=== PATIENT | female | born 1945 | race Caucasian/White ===

== ENCOUNTER 2016-12-07 02:19 | Observation (INO) | payer MEDICARE ==
[2016-12-07] VITALS (11 sets, daily range): BP systolic 100–232; BP diastolic 56–102; PULSE 65–93; RESP 16–22; TEMP 96.2–98; O2SAT 96–99
[~2016-12-07] VITALS: Ht 157.5 cm; Wt 71.0 kg
[~2016-12-07 02:19] MED LIST: BACT800T5 PO; CLIN1CAP5 PO; LISI-363 PO; LOVA20TA PO
[2016-12-07] MEDS ORDERED: LISI-515 PO (02:38)
[2016-12-07] MEDS ORDERED: LOVA10TA PO (02:39)
--- NOTE | 2016-12-07 03:24 | PD ---
HPI Chief Complaint: Back/ Neck Pain or Injury Time Seen by Provider: 03:16 Travel History International Travel<30 days: No Contact w/Intl Traveler<30days: No Traveled to known affect area: No History of Present Illness HPI The patient is a 71-year-old female that was at girls night out and she had one drink of vodka and fell twice this evening, both losing her balance and tripping. She fell once at 5 PM and then another time at 6 PM. She complains of pain on the lower thoracic spine and throughout the lumbar spine. She has tenderness in this area. She states her pain is a 10 over 10. The pain is sharp pain. There is no radiation of pain, numbness or weakness of any of her extremities. She specifically denies any cervical spine pain and she denies any head trauma. [facility] Past Medical History High Cholesterol: Yes Diminished Hearing: No Hypertension: Yes Tetanus Vaccination: < 5 Years Influenza Vaccination: No ?: Not Past Surgical History Section: Yes Social History Alcohol Use: Yes (Vodka weekly) Tobacco Use: No Substance Use: No Allergies-Medications (Allergen,Severity, Reaction): Coded Allergies: No Known Allergies (Verified , 12/07/16) Reported Meds & Prescriptions Reported Meds & Active Scripts Active Reported Lovastatin 10 Mg Tab 10 Mg PO DAILY Lisinopril 20 Mg Tab 20 Mg PO DAILY Review of Systems Except as stated in HPI: all other systems reviewed are Neg Physical Exam Narrative GENERAL: Well-nourished, well-developed patient in moderate to severe apparent distress with her thoracic and lumbar spine pain. Her vital signs show blood pressure 232/102 and respirations of 22 and heart rate of 93 but otherwise normal. SKIN: Focused skin assessment warm/dry. HEAD: Normocephalic. EYES: No scleral icterus. No injection or drainage. NECK: Supple, trachea midline. No JVD or lymphadenopathy. CARDIOVASCULAR: Regular rate and rhythm without murmurs, gallops, or rubs. RESPIRATORY: Breath sounds equal bilaterally. No accessory muscle use. GASTROINTESTINAL: Abdomen soft, non-tender, nondistended. MUSCULOSKELETAL: No cyanosis, or edema. BACK: Nontender without obvious deformity. No CVA tenderness. Data Data Last Documented VS Vital Signs Date Time Temp Pulse Resp B/P (MAP) Pulse Ox O2 Delivery O2 Flow Rate FiO2 12/07/16 05:45 70 18 163/85 (111) 99 Room Air 12/07/16 02:[address] Thor Spine W/O Contrast (12/07/16 03:16) Ct Lumb Spine W/O Contrast (12/07/16 03:16) Morphine Inj (Morphine Inj) (12/07/16 03:30) Ondansetron Inj (Zofran Inj) (12/07/16 03:30) Sodium Chlor 0.9% 1000 Ml Inj (Ns 1000 M (12/07/16 03:30) Ice/Cold Pack (12/07/16 03:27) Morphine Inj (Morphine Inj) (12/07/16 04:00) Morphine Inj (Morphine Inj) (12/07/16 05:00) Ondansetron Inj (Zofran Inj) (12/07/16 05:15) MDM Medical Decision Making Medical Screen Exam Complete: Yes Emergency Medical Condition: Yes Medical Record Reviewed: Yes Interpretation(s) The CT of the lumbar spine shows mild superior and plate fracture at L1 with no retropulsion of posterior fragments or canal stenosis. There are multilevel disc bulges. The CT of the thoracic spine shows no fracture or subluxation and incidentally notes mild emphysema. Differential Diagnosis Compression fracture, acute thoracic strain, acute lumbar strain, subluxation lumbar spine, burst fracture Narrative Course I first discussed the patient with Dr. Hope but she felt that the patient will need neurosurgical consultation and will need to go to [facility]. Because the patient is a patient of Dr. Shaw this will go to the [facility]. Dr. Chang is on tonight and I discussed the patient with him. He did except the patient. The patient had an episode of vertigo which caused her to vomit. She does have an intractable back pain with this mild superior endplate fracture. Diagnosis Primary Impression: Compression fracture of L1 lumbar vertebra Additional Impression: Vertigo Admitting Information Admitting Physician Requests: Admit Cyrus Lobo MD Dec 07, 2016 03:24
[2016-12-07] MEDS ORDERED: MORPHINE SULFATE 4 MG/ML INJ IV PUSH ONE ×3 (03:30→05:00)
[2016-12-07] MEDS ORDERED: SODIUM CHLOR 0.9% 1000 ML INJ 1,000 ML IV SCH (03:30)
[2016-12-07] MEDS ORDERED: ONDANSETRON HCL 4 MG/2 ML VIAL IV ONE ×2 (03:30→05:15)
--- NOTE | 2016-12-07 04:49 | RADRPT ---
EXAM DATE/TIME: 12/07/2016 03:46 [facility] COMPARISON: No previous studies available for comparison. INDICATIONS : Status post fall this evening. RADIATION DOSE: 41.94 CTDIvol (mGy) ; Combined studies - Thoracic Spine/Lumbar Spine MEDICAL HISTORY : Hypertension. SURGICAL HISTORY : section. ENCOUNTER: Initial ACUITY: 1 day PAIN SCALE: 10/10 LOCATION: middle back TECHNIQUE: Volumetric scanning of the thoracic spine was performed. Multiplanar reconstructions in the sagittal , coronal and oblique axial planes were performed. Using automated exposure control and adjustment o f the mA and/or kV according to patient size, radiation dose was kept as low as reasonably achievable to obtain optimal diagnostic quality images. DICOM format image data is available electronically f or review and comparison. FINDINGS: The vertebral bodies of the thoracic spine are in normal alignment without evidence of subluxation. Vertebral body height is maintained. No fractures are seen. T1-T2: Normal. T2-T3: The thecal sac has a normal diameter. No evidence of disc bulge or protrusion. T3-T4: The thecal sac has a normal diameter. No evidence of disc bulge or protrusion. T4-T5: The thecal sac has a normal diameter. No evidence of disc bulge or protrusion. T5-T6: The thecal sac has a normal diameter. No evidence of disc bulge or protrusion. T6-T7: The thecal sac has a normal diameter. No evidence of disc bulge or protrusion. T7-T8: The thecal sac has a normal diameter. No evidence of disc bulge or protrusion. T8-T9: The thecal sac has a normal diameter. No evidence of disc bulge or protrusion. T9-T10: The thecal sac has a normal diameter. No evidence of disc bulge or protrusion. T10-T11: The thecal sac has a normal diameter. No evidence of disc bulge or protrusion. T11-T12: The thecal sac has a normal diameter. No evidence of disc bulge or protrusion. T12-L1: The thecal sac has a normal diameter. No evidence of disc bulge or protrusion. CONCLUSION: 1. No fracture or subluxation. 2. Minimal degenerative changes. 3. Mild emphysema. Boni Queen MD on December 07, 2016 at 4:46 Board Certified Radiologist. This report was verified electronically.
--- NOTE | 2016-12-07 04:52 | RADRPT ---
EXAM DATE/TIME: 12/07/2016 03:46 [facility] COMPARISON: No previous studies available for comparison. INDICATIONS : Status post fall this evening RADIATION DOSE: 40.21 CTDIvol (mGy) ; Combined studies - Thoracic Spine/Lumbar Spine MEDICAL HISTORY : Hypertension. SURGICAL HISTORY : section. ENCOUNTER: Initial ACUITY: 1 day PAIN SCALE: 10/10 LOCATION: middle back TECHNIQUE: Volumetric scanning of the lumbar spine was performed. Multiplanar reconstructions in the sagittal, coronal and oblique axial planes were performed. Using automated exposure control and adjustment of the mA and/or kV according to patient size, radiation dose was kept as low as reasonably achievable t o obtain optimal diagnostic quality images. DICOM format image data is available electronically for review and comparison. FINDINGS: VERTEBRAE: Minimal fracture along the superior endplate at L1. No retropulsion of posterior fragments. ALIGNMENT: No evidence of subluxation. T12-L1: The thecal sac has a normal diameter. No evidence of disc bulge or protrusion. The neural foramina are patent bilaterally. L1-L2: The thecal sac has a normal diameter. No evidence of disc bulge or protrusion. The neural foramina are patent bilaterally. L2-L3: Mild broad-based disc bulge abuts ventral thecal sac without canal stenosis. The neural foramina are patent bilaterally. L3-L4: Mild broad-based disc bulge abuts ventral thecal sac without canal stenosis. The neural foramina ar e patent bilaterally. L4-L5: Mild broad-based disc bulge abuts ventral thecal sac causing mild canal stenosis. The neural foramin a are patent bilaterally. L5-S1: Mild broad-based disc bulge abuts ventral thecal sac without canal stenosis. The neural foramina are patent bilaterally. CONCLUSION: 1. Mild superior endplate fracture at L1.No retropulsion of posterior fragments or canal stenosis. 2. Multilevel disc bulges. Boni Queen MD on December 07, 2016 at 4:48 Board Certified Radiologist. This report was verified electronically.
[2016-12-07] MEDS ORDERED: LORazepam 2 MG/ML VIAL IV PUSH ONE ×2 (06:15)
[2016-12-07] MEDS ORDERED: NALOXONE HCL 0.4 MG/ML AMP IV PUSH PRN (06:30)
[2016-12-07] MEDS ORDERED: MAGNESIUM HYDROXIDE SUSP 30 ML CUP PO PRN (06:30)
[2016-12-07] MEDS ORDERED: LACTULOSE SYRUP 20 GM/30 ML CUP PO PRN (06:30)
[2016-12-07] MEDS ORDERED: ACETAMINOPHEN 325 MG TAB PO PRN (06:30)
[2016-12-07] MEDS ORDERED: SODIUM CHLORIDE 0.9% FLUSH 10 ML FLUSH IV FLUSH PRN (06:30)
[2016-12-07] MEDS ORDERED: SENNOSIDES 8.6 MG TAB PO PRN (06:30)
[2016-12-07] MEDS ORDERED: BISACODYL 10 MG SUPP RECTAL PRN (06:30)
[2016-12-07] MEDS: SODIUM CHLOR 0.9% 1000 ML INJ 1,000 ML IV SCH ×2 (06:33→19:15)
[2016-12-07] MEDS: SODIUM CHLORIDE 0.9% FLUSH 10 ML FLUSH IV FLUSH SCH ×2 (09:00→19:15)
[2016-12-07] MEDS: PRAVASTATIN SOD 10 MG TAB PO SCH (09:12)
[2016-12-07] MEDS: LISINOPRIL 20 MG TAB PO SCH (09:13)
[2016-12-07] MEDS: DOCUSATE SODIUM 50 MG/SENNA 8.6 MG TAB PO SCH ×2 (09:13→19:15)
[2016-12-07] MEDS: ONDANSETRON HCL 4 MG/2 ML VIAL IVP PRN (09:16)
[2016-12-07] MEDS: ACETAMINOPHEN/HYDROcodone 325 MG/5 MG TAB PO PRN ×3 (12:44→21:49)
--- NOTE | 2016-12-07 17:15 | MH ---
cc: JAMIE INIGUEZ MD DATE OF ADMISSION 12/07/2016 DATE OF : 47 [facility] IM[address] STUD[address] Dr. Shaw REASON FOR ADMISSION Severe intractable back pain, inability to stand and walk. HISTORY OF PRESENT ILLNESS The patient is a very pleasant 71-year female who had a girls night out yesterday and she had two drinks of vodka. After that, she had two falls, the first fall in her girlfriend's house. Both falls were trip and fall incidents in a house. The second fall in a parking lot because of the curb and she fell on her bottom. After that, she has severe pain and the pain remained the whole night. She could not get up and walk it was so severe. The patient came to the emergency room. In the emergency room, she was evaluated by the ER physician and found to have an L1 fracture for which she was recommended for admission and needed a neurosurgical evaluation. The patient was transferred to the main hospital for neurosurgical evaluation. The patient was seen this morning with RN at the bedside. At that time, the patient had controllable pain with pain medication and she had no other associated symptoms. She denies any headache, dizziness, nausea, vomiting, chest pain, diaphoresis, palpitations. The patient denies any abdominal pain, constipation or diarrhea. The patient has no genitourinary symptoms. The patient has no numbness or tingling sensation or weakness in the lower extremity. As per patient, after drinking she felt dizzy yesterday and most likely because of the dizziness she fell down. PAST MEDICAL HISTORY 1. Hyperlipidemia. 2. Hypertension. MEDICATIONS 1. Lisinopril 2. Lovastatin. ALLERGIES NO KNOWN DRUG ALLERGIES. SOCIAL HISTORY The patient just drinks one drink weekly, does not do any drugs or smoke. FAMILY HISTORY Noncontributory. PHYSICAL EXAMINATION GENERAL: The patient is alert and oriented lying on bed without any apparent distress. VITAL SIGNS: She is afebrile, pulse is 78, respiratory rate 18, blood pressure was , pulse 96 on two liters. HEENT: Head atraumatic, normocephalic. Negative conjunctival icterus, mouth unremarkable. NECK: Supple. Negative increased JVD. Negative thyromegaly. Central trachea. CHEST: Clear to auscultation. CARDIAC: S1, S2 audible. Unable to hear any S3 gallop. ABDOMEN: Soft, nontender, no organomegaly. Positive bowel sounds. MUSCULOSKELETAL: Extremities no cyanosis or pedal edema appreciated. WINCH STRIPPER: Grossly intact with good tactile sensation in the lower extremity. Can lift lower extremity above the bed level both legs with some pain in the lower back. PSYCHIATRIC: Appropriate mood and affect. IMAGING STUDIES CT of the lumbar spine was done which shows mild superior endplate fracture at L1, no retroversion or posterior fragment or canal stenosis. Multilevel disk bulge. CT was done which shows no fracture or subluxation. Minimal degenerative changes. Mild emphysema. ASSESSMENT 1. Severe intractable back pain because of the compression fracture of L1 lumbar vertebral, inability to walk and stand. 2. Hypertensive urgency. On admission to the ER, blood pressure was 232/102. 3. Vertigo/dizziness better. PLAN 1. The patient admitted to the floor. 2. IV hydration. 3. Analgesics as needed 4. P.r.n. antiemetics. 5. Neurosurgical consult. 6. Physical therapy if it is okay with neurosurgery 7. Continue home medications as indicated. 8. Monitor blood pressure. 9. Discussed with the patient. 10. Discussed with RN. Further recommendation to follow as per patient progress. Jamie Iniguez MD JP/ /4:03 PM /4:50 PM
[2016-12-08] VITALS (7 sets, daily range): BP systolic 118–164; BP diastolic 59–77; PULSE 53–74; RESP 16–18; TEMP 96.7–98.2; O2SAT 94–96
[2016-12-08] MEDS: ACETAMINOPHEN/HYDROcodone 325 MG/5 MG TAB PO PRN ×6 (01:58→23:35)
[2016-12-08] MEDS: DOCUSATE SODIUM 50 MG/SENNA 8.6 MG TAB PO SCH ×2 (09:09→20:58)
[2016-12-08] MEDS: PRAVASTATIN SOD 10 MG TAB PO SCH (09:09)
[2016-12-08] MEDS: LISINOPRIL 20 MG TAB PO SCH (09:09)
[2016-12-08] MEDS: SODIUM CHLORIDE 0.9% FLUSH 10 ML FLUSH IV FLUSH SCH ×2 (09:18→20:58)
--- NOTE | 2016-12-08 10:19 | HHI.PR ---
Subjective Remarks 71yr old female seen and examined today. Lying in bed in mild distress. Awaiting MRI L spine. Pain meds are helping. No CP/SOn/NVD/headache/fever. Objective Objective Results - Vital Signs Date Time Temp Pulse Resp B/P (MAP) Pulse Ox O2 Delivery O2 Flow Rate FiO2 12/08/16 08:00 96.7 66 17 141/66 (91) 94 12/08/16 04:00 97.2 53 16 129/66 (87) 95 12/08/16 00:00 97.4 63 16 118/59 (78) 96 12/07/16 20:01 96.2 75 17 129/67 (87) 96 12/07/16 16:00 96.4 65 18 137/63 (87) 96 12/07/16 13:44 16 12/07/16 11:00 96.6 78 18 121/58 (79) 96 I/O 12/07/16 12/07/16 12/07/16 12/08/16 12/08/16 12/08/16 07:00 15:00 23:00 07:00 15:00 23:00 Intake Total 1000 ml 960 ml 360 ml 480 ml Balance 1000 ml 960 ml 360 ml 480 ml Intake Oral 960 ml 360 ml 480 ml IV Total 1000 ml # Voids 1 2 1 # Bowel Movements 0 0 0 ROS General: No: Fatigue, Weakness, Other HEENT: No: Sore Throat, Dysphagia, Other Cardiac: No: Chest Pain, Edema, Palpitations, Other Pulmonary: No: Cough, SOB, Wheezing, Other GI: No: Abdominal Pain, BM, Diarrhea, N/V, Other /ADZ WORKER: No: Dysuria, Urgency, Other Neuro/MS: Other (back pain. ), No: Lightheaded, Confusion Psych: No: Anxiety, Depression, Other Skin: No: Itching, Rash, Other Physical Exam Physical Exam PHYSICAL EXAMINATION GENERAL: This is a well-developed, well-nourished female who appears to be in mild distress due to pain. She is alert and awake. HEAD: Normocephalic without any lesion or mass noted. Facial features appear symmetric. EYES: Perrla, Normal eye movement, No icterus. OROPHARYNGEAL: Oropharynx without erythema or edema. MOUTH/THROAT: Buccal mucosa is moist NECK: Supple. No nuchal rigidity or lymphadenopathy. Trachea midline without deviation. Thyroid not palpable, no bruits appreciated. CARDIAC: Regular rhythm, regular rate, S1 and S2 are heard. LUNGS: Clear to auscultation bilaterally use of accessory muscles on inspiration or expiration. ABDOMEN: Soft, nontender, no organomegaly or masses. Bowel sounds are heard in all four quadrants. No rebound. No guarding. EXTREMITIES: No CCE. NEUROLOGICAL: Patient mood and affect appropriate. rossly intact with good tactile sensation in the lower extremity. Can lift lower extremities above the bed level with some pain in the lower back. SKIN:Warm and moist PSYCH: Mood and affect appropriate A/P Assessment and Plan 1. Severe intractable back pain because of the compression fracture of L1 lumbar vertebral. 2. Inability to walk and stand becuase of L1 lumbar vertebral fracture. 2. Hypertensive urgency. On admission to the ER, blood pressure was 232/102. 3. Vertigo/dizziness: better. PLAN 1. Seen on floor. 2. IV hydration. 3. Analgesics as needed 4. P.r.n. antiemetics. 5. Neurosurgical consult: appreciate input. 6. Physical therapy per neurosurgery. 7. MRI L spine pending. 8. BP better. Monitor. 9. Continue home medications as indicated. 10. Discussed with the patient/daughter. Gracie iHll MD Dec 08, 2016 10:19
[2016-12-08] MEDS: SODIUM CHLOR 0.9% 1000 ML INJ 1,000 ML IV SCH (10:58)
--- NOTE | 2016-12-08 11:38 | RADRPT ---
EXAM DATE/TIME: 12/08/2016 11:10 [facility] COMPARISON: CT LUMBAR SPINE W/O CONTRAST, December 07, 2016, 3:46. INDICATIONS : Trauma. Fall. Compression fracture L1. MEDICAL HISTORY : Hypertension. Hypercholesterolemia. SURGICAL HISTORY : section. ENCOUNTER: Initial ACUITY: 2 day PAIN SCORE: 4/10 LOCATION: [facility] TECHNIQUE: Multiplanar multisequence MRI of the lumbar spine was performed without contrast. FINDINGS: The most caudal appearing lumbar vertebra is numbered as L5. VERTEBRAE: There is fracturing of the superior aspect of the L1 vertebral body. There is concavity to the superi or endplate of L1. Significant overall loss of height is not seen. There also appears to be increased signal seen at the anterior inferior L2 vertebral body with small Schmorl's nodes. This is a more ch ronic appearance of L2. CONUS: Normal level and configuration. T12-L1: The thecal sac has a normal diameter. No evidence of disc bulge or protrusion. The neural foramina are patent bilaterally. L1-L2: The thecal sac has a normal diameter. No evidence of disc bulge or protrusion. The neural foramina are patent bilaterally. L2-L3: The thecal sac has a normal diameter. No evidence of disc bulge or protrusion. The neural foramina are patent bilaterally. L3-L4: The thecal sac has a normal diameter. No evidence of disc bulge or protrusion. The neural foramina are patent bilaterally. L4-L5: There is slight bulging of the discs. There is mild facet hypertrophy. The thecal sac has a normal di ameter. The neural foramina are patent bilaterally. L5-S1: The thecal sac has a normal diameter. No evidence of disc bulge or protrusion. The neural foramina are patent bilaterally. There is mild facet hypertrophy. CONCLUSION: 1. Acute fracturing at the superior aspect of the L1 vertebral body with some concavity to the superi or aspect of the L1 vertebral body but no overall loss of height at L1. No retropulsion is present. 2. Minimal bulging at the L4-L5 level and mild facet hypertrophy at the L4-L5 L5-S1 level's. 3. Small Schmorl's node with type I endplate changes at the anterior-inferior aspect of L2. Cristofer Yan MD on December 08, 2016 at 11:32 Board Certified Radiologist. This report was verified electronically.
[2016-12-09] MEDS: SODIUM CHLOR 0.9% 1000 ML INJ 1,000 ML IV SCH ×3 (01:02→20:56)
[2016-12-09 03:53] VITALS: BP 139/72; PULSE 64; RESP 18; TEMP 96.7; O2SAT 95
[2016-12-09] MEDS: ACETAMINOPHEN/HYDROcodone 325 MG/5 MG TAB PO PRN ×4 (04:50→18:48)
[2016-12-09 08:00] VITALS: BP 132/63; PULSE 64; RESP 18; TEMP 97.3; O2SAT 95
[2016-12-09] MEDS: DOCUSATE SODIUM 50 MG/SENNA 8.6 MG TAB PO SCH ×2 (09:13→20:52)
[2016-12-09] MEDS: PRAVASTATIN SOD 10 MG TAB PO SCH (09:13)
[2016-12-09] MEDS: LISINOPRIL 20 MG TAB PO SCH (09:13)
[2016-12-09] MEDS: SODIUM CHLORIDE 0.9% FLUSH 10 ML FLUSH IV FLUSH SCH ×2 (09:14→20:56)
--- NOTE | 2016-12-09 10:47 | HHI.PR ---
Subjective Remarks 71yr old female seen and examined today. Lying in bed in no distress.MRI L spine: acute fracture of L1 vertebra. Pain meds are helping. Awaiting Pt romy/rec. No CP/SOn/NVD/headache/fever. Objective Objective Results - Vital Signs Date Time Temp Pulse Resp B/P (MAP) Pulse Ox O2 Delivery O2 Flow Rate FiO2 12/09/16 08:00 97.3 64 18 132/63 (86) 95 12/09/16 05:55 18 12/09/16 03:53 96.7 64 18 139/72 (94) 95 12/09/16 01:43 Room Air 12/08/16 23:19 96.9 66 17 142/66 (91) 96 12/08/16 19:39 98.2 74 18 128/67 (87) 95 12/08/16 16:00 97.7 68 18 164/77 (106) 96 12/08/16 12:00 96.7 68 18 138/65 (89) 96 I/O 12/08/16 12/08/16 12/08/16 12/09/16 12/09/16 12/09/16 07:00 15:00 23:00 07:00 15:00 23:00 Intake Total 480 ml 480 ml 360 ml Balance 480 ml 480 ml 360 ml Intake Oral 480 ml 480 ml 360 ml # Voids 1 3 3 1 # Bowel Movements 0 0 0 ROS General: No: Fatigue, Weakness, Other HEENT: No: Sore Throat, Dysphagia, Other Cardiac: No: Chest Pain, Edema, Palpitations, Other Pulmonary: No: Cough, SOB, Wheezing, Other GI: No: Abdominal Pain, BM, Diarrhea, N/V, Other /FIELD INVESTIGATOR: No: Dysuria, Urgency, Other Neuro/MS: Other (back pain. ) Psych: No: Anxiety, Depression, Other Skin: No: Itching, Rash, Other Physical Exam Physical Exam PHYSICAL EXAMINATION GENERAL: This is a well-developed, well-nourished female who appears to be in mild distress due to pain. She is alert and awake. HEAD: Normocephalic without any lesion or mass noted. Facial features appear symmetric. EYES: Perrla, Normal eye movement, No icterus. OROPHARYNGEAL: Oropharynx without erythema or edema. MOUTH/THROAT: Buccal mucosa is moist NECK: Supple. No nuchal rigidity or lymphadenopathy. Trachea midline without deviation. Thyroid not palpable, no bruits appreciated. CARDIAC: Regular rhythm, regular rate, S1 and S2 are heard. LUNGS: Clear to auscultation bilaterally use of accessory muscles on inspiration or expiration. ABDOMEN: Soft, nontender, no organomegaly or masses. Bowel sounds are heard in all four quadrants. No rebound. No guarding. EXTREMITIES: No CCE. NEUROLOGICAL: Patient mood and affect appropriate. Grossly intact with good tactile sensation in the lower extremity. Can lift lower extremities above the bed level with some pain in the lower back. SKIN:Warm and moist PSYCH: Mood and affect appropriate A/P Assessment and Plan 1. Severe intractable back pain because of the compression fracture of L1 lumbar vertebral. 2. Inability to walk and stand because of L1 lumbar vertebral fracture. 2. Hypertensive urgency. On admission to the ER, blood pressure was 232/102. 3. Vertigo/dizziness: better. PLAN 1. Seen on floor. 2. IV hydration. 3. Analgesics as needed 4. P.r.n. antiemetics. 5. MRI L spine: acute L1 fracture. 6. Neurosurgical consult: appreciate input: no surgery. 7. Physical therapy per neurosurgery. 8. Back brace per NS. 9. BP better. Monitor. 10. Continue home medications as indicated. 11. Discussed with the patient/daughter/RN. Possible dc in am. Gracie Hill MD Dec 09, 2016 10:47
--- NOTE | 2016-12-09 10:48 | HHI.NSPN ---
(Mela Mcmanus) Note Status Status: Progress Note (Mela Mcmanus) Interval History Interval History Ms. Clark is a 71 year old female who trip and fell. She developed lumbar pain following the fall. MRI Lumbar spine shows and acute L1 compression fracture. Her pain is improving and stable. She requests nonoperative management. (Mela Mcmanus) Labs, Micro, & Vital Signs Results Date Time Temp Pulse Resp B/P (MAP) Pulse Ox O2 Delivery O2 Flow Rate FiO2 12/09/16 08:00 97.3 64 18 132/63 (86) 95 12/09/16 05:55 18 12/09/16 03:53 96.7 64 18 139/72 (94) 95 12/09/16 01:43 Room Air 12/08/16 23:19 96.9 66 17 142/66 (91) 96 12/08/16 19:39 98.2 74 18 128/67 (87) 95 12/08/16 16:00 97.7 68 18 164/77 (106) 96 12/08/16 12:00 96.7 68 18 138/65 (89) 96 Constitutional Vital Signs Date Time Temp Pulse Resp B/P (MAP) Pulse Ox O2 Delivery O2 Flow Rate FiO2 12/09/16 08:00 97.3 64 18 132/63 (86) 95 12/09/16 05:55 18 12/09/16 03:53 96.7 64 18 139/72 (94) 95 12/09/16 01:43 Room Air 12/08/16 23:19 96.9 66 17 142/66 (91) 96 12/08/16 19:39 98.2 74 18 128/67 (87) 95 12/08/16 16:00 97.7 68 18 164/77 (106) 96 12/08/16 12:00 96.7 68 18 138/65 (89) 96 (Mela Mcmanus) Review of Systems Constitutional: DENIES: Fever, Chills Genitourinary: DENIES: Urinary incontinence Musculoskeletal: COMPLAINS OF: Back pain Neurologic: DENIES: Paresthesias (Mela Mcmanus) Physical Exam Ms. Miller is alert, awake and oriented to time, place and person. Speech is fluent. Following commands without difficulties. Cranial nerve examination: pupils equal, round, and reactive to light. Facial motor are normal and symmetrical. Other cranial nerves are grossly intact. Neck is soft and supple. Muscle strength: In the lower extremities, strength is 5/5 in both iliopsoas, quadriceps, hamstrings, plantar flexion, dorsiflexion, and extensor hallicus longus. Sensory examination is intact to light touch in lower extremities, symmetrically. Deep tendon reflexes: patellar and Achilles are 2+, bilaterally. There is a bilateral plantar flexion response. (Mela Mcmanus) Medications Current Medications Current Medications Medications (Trade) Dose Ordered Sig/Ren Route PRN Reason Start Time Stop Time Status Last Admin Dose Admin Sodium Chloride 1,000 ml @ 70 mls/hr [id number] IV 12/07/16 06:22 12/07/16 06:33 Sodium Chloride (NS Flush) 2 ml UNSCH PRN IV FLUSH FLUSH AFTER USING IV ACCESS 12/07/16 06:30 Sodium Chloride (NS Flush) 2 ml BID IV FLUSH 12/07/16 09:00 12/09/16 09:14 Acetaminophen (Tylenol) 650 mg Q4H PRN PO TEMP > 100.4 12/07/16 06:30 Ondansetron HCl (Zofran Inj) 4 mg Q6H PRN IVP NAUSEA OR VOMITING 12/07/16 06:30 12/07/16 09:16 Naloxone HCl (Narcan Inj) 0.4 mg UNSCH PRN IV PUSH SEE LABEL COMMENTS 12/07/16 06:30 Senna/Docusate Sodium (Anahi-Colace) 1 tab BID PO 12/07/16 09:00 12/09/16 09:13 Magnesium Hydroxide (Milk Of Magnesia Liq) 30 ml Q12H PRN PO Mild constipation 12/07/16 06:30 12/08/16 20:58 Sennosides (Senokot) 17.2 mg Q12H PRN PO Moderate constipation 12/07/16 06:30 Bisacodyl (Dulcolax Supp) 10 mg DAILY PRN RECTAL SEVERE CONSITIPATION 12/07/16 06:30 Lactulose (Lactulose Liq) 30 ml DAILY PRN PO SEVERE CONSITIPATION 12/07/16 06:30 Lisinopril (Prinivil) 20 mg DAILY PO 12/07/16 09:00 12/09/16 09:13 Pravastatin Sodium (Pravachol) 10 mg DAILY PO 12/07/16 09:00 12/09/16 09:13 Acetaminophen/ Hydrocodone Bitart ([place] 5-325 Mg) 1 tab Q4H PRN PO PAIN SCALE 5 TO 10 12/07/16 11:00 12/09/16 09:13 (Mela Mcmanus) Medical Decision Making MDM Remarks 71 y/o female developed lumbar axial pain following ground level fall MRI L spine with acute L1 compression fracture without retropulsion (Mela Mcmanus) Plan Plan Remarks we again offered kyphoplasty of L1 compression fracture, patient continues to request nonoperative management, supportive care of pain TLSO when out of bed Physical Therapy ok to dc from NRS standpoint once PT evaluates, f/u in Dr. Johns in 4 weeks with f/u lumbar spine xray, or to call our office if pain worsens dw patient, family member and nursing our plan of care (Mela Mcmanus) Attending Statement The exam, history, and the medical decision-making described in the above note were completed with the assistance of the mid-level provider. I reviewed and agree with the findings presented. I attest that I had a [id number] encounter with the patient on the same day, and personally performed and documented my assessment and findings in the medical record. (Marin Johns MD) Mela Mcmanus Dec 09, 2016 10:48 Marin Johns MD Dec 16, 2016 21:48
[2016-12-09 16:00] VITALS: BP 146/70; PULSE 69; RESP 18; TEMP 96.6; O2SAT 96
[2016-12-09] MEDS: ONDANSETRON HCL 4 MG/2 ML VIAL IVP PRN (16:20)
[2016-12-09 19:45] VITALS: BP 165/74; PULSE 84; RESP 17; TEMP 96.4; O2SAT 97
[2016-12-09 21:35] VITALS: BP 140/69
[2016-12-10] VITALS: BP 135/67; PULSE 72; RESP 16; TEMP 97.1; O2SAT 97
[2016-12-10] MEDS: ACETAMINOPHEN/HYDROcodone 325 MG/5 MG TAB PO PRN ×4 (00:28→16:23)
[2016-12-10 07:45] VITALS: BP 119/71; PULSE 76; RESP 18; TEMP 97.5; O2SAT 95
[2016-12-10] MEDS: SODIUM CHLORIDE 0.9% FLUSH 10 ML FLUSH IV FLUSH SCH (09:00)
--- NOTE | 2016-12-10 10:20 | HHI.NSPN ---
(Mela Mcmanus) Note Status Status: Progress Note (Mela Mcmanus) Interval History Interval History Ms. Clark is a 71 year old female who trip and fell. She developed lumbar pain following the fall. MRI Lumbar spine shows and acute L1 compression fracture. Her pain is improving and stable. She requests nonoperative management. 12/10: gotten out of bed yesterday - was nauseous, fatigued, became mildly hypotensive thus stayed. reports today eager to work again with PT, still would like conservative management. (Mela Mcmanus) Labs, Micro, & Vital Signs Results Date Time Temp Pulse Resp B/P (MAP) Pulse Ox O2 Delivery O2 Flow Rate FiO2 12/10/16 07:45 97.5 76 18 119/71 (87) 95 12/10/16 00:00 97.1 72 16 135/67 (89) 97 12/09/16 21:35 140/69 (92) 12/09/16 19:45 96.4 84 17 165/74 (104) 97 12/09/16 16:00 96.6 69 18 146/70 (95) 96 Constitutional Vital Signs Date Time Temp Pulse Resp B/P (MAP) Pulse Ox O2 Delivery O2 Flow Rate FiO2 12/10/16 07:45 97.5 76 18 119/71 (87) 95 12/10/16 00:00 97.1 72 16 135/67 (89) 97 12/09/16 21:35 140/69 (92) 12/09/16 19:45 96.4 84 17 165/74 (104) 97 12/09/16 16:00 96.6 69 18 146/70 (95) 96 (Mela Mcmanus) Physical Exam Ms. Miller is alert, awake and oriented to time, place and person. Speech is fluent. Following commands without difficulties. Cranial nerve examination: pupils equal, round, and reactive to light. Facial motor are normal and symmetrical. Other cranial nerves are grossly intact. Neck is soft and supple. Muscle strength: In the lower extremities, strength is 5/5 in both iliopsoas, quadriceps, hamstrings, plantar flexion, dorsiflexion, and extensor hallicus longus. Sensory examination is intact to light touch in lower extremities, symmetrically. Deep tendon reflexes: patellar and Achilles are 2+, bilaterally. There is a bilateral plantar flexion response. No ankle clonus. (Mela Mcmanus) Medications Current Medications Current Medications Medications (Trade) Dose Ordered Sig/Ren Route PRN Reason Start Time Stop Time Status Last Admin Dose Admin Sodium Chloride 1,000 ml @ 70 mls/hr [id number] IV 12/07/16 06:22 12/07/16 06:33 Sodium Chloride (NS Flush) 2 ml UNSCH PRN IV FLUSH FLUSH AFTER USING IV ACCESS 12/07/16 06:30 Sodium Chloride (NS Flush) 2 ml BID IV FLUSH 12/07/16 09:00 12/09/16 20:56 Acetaminophen (Tylenol) 650 mg Q4H PRN PO TEMP > 100.4 12/07/16 06:30 Ondansetron HCl (Zofran Inj) 4 mg Q6H PRN IVP NAUSEA OR VOMITING 12/07/16 06:30 12/09/16 16:20 Naloxone HCl (Narcan Inj) 0.4 mg UNSCH PRN IV PUSH SEE LABEL COMMENTS 12/07/16 06:30 Senna/Docusate Sodium (Anahi-Colace) 1 tab BID PO 12/07/16 09:00 12/09/16 20:52 Magnesium Hydroxide (Milk Of Magnesia Liq) 30 ml Q12H PRN PO Mild constipation 12/07/16 06:30 12/08/16 20:58 Sennosides (Senokot) 17.2 mg Q12H PRN PO Moderate constipation 12/07/16 06:30 Bisacodyl (Dulcolax Supp) 10 mg DAILY PRN RECTAL SEVERE CONSITIPATION 12/07/16 06:30 Lactulose (Lactulose Liq) 30 ml DAILY PRN PO SEVERE CONSITIPATION 12/07/16 06:30 Lisinopril (Prinivil) 20 mg DAILY PO 12/07/16 09:00 12/09/16 09:13 Pravastatin Sodium (Pravachol) 10 mg DAILY PO 12/07/16 09:00 12/09/16 09:13 Acetaminophen/ Hydrocodone Bitart ([place] 5-325 Mg) 1 tab Q4H PRN PO PAIN SCALE 5 TO 10 12/07/16 11:00 12/10/16 06:38 (Mela Mcmanus) Medical Decision Making MDM Remarks 71 y/o female developed lumbar axial pain following ground level fall MRI L spine with acute L1 compression fracture without retropulsion, stable lumbar pain (Mela Mcmanus) Plan Plan Remarks again offered kyphoplasty of L1 compression fracture, patient continues to request nonoperative management, supportive care of pain TLSO when out of bed cont Physical Therapy, appreciate evaluation ok to dc from NRS standpoint f/u in Dr. Johns in 4 weeks with f/u lumbar spine xray, or to call our office if pain worsens (Mela Mcmanus) Attending Statement Continue neuro checks. Pulmonary.. Continue aggressive pulmonary toilette, nasotracheal suction, and breathing treatments with nebulizers. Renal. monitor closely urine output, BUN and creatinine Endocrine. Monitor serial Acu checks and SSI as needed in detail ID monitor for signs of infection Protonix for stress ulcer prophylaxis Jad hose and SCD's for DVT prophylaxis. The exam, history, and the medical decision-making described in the above note were completed with the assistance of the mid-level provider. I reviewed and agree with the findings presented. I attest that I had a [id number] encounter with the patient on the same day, and personally performed and documented my assessment and findings in the medical record. (Marin Johns MD) Mela Mcmanus Dec 10, 2016 10:20 Marin Johns MD Dec 16, 2016 21:55
[2016-12-10] MEDS: PRAVASTATIN SOD 10 MG TAB PO SCH (10:35)
[2016-12-10] MEDS: DOCUSATE SODIUM 50 MG/SENNA 8.6 MG TAB PO SCH (10:36)
[2016-12-10] MEDS: LISINOPRIL 20 MG TAB PO SCH (10:36)
[2016-12-10 11:28] VITALS: BP 125/72; PULSE 65; RESP 18; TEMP 96.8; O2SAT 94
--- NOTE | 2016-12-10 12:37 | HHI.PR ---
Subjective Interval History Alert, oriented, wearing the brace, able to ambulate only with help, pain reasonably well controlled, no trouble with sphincter control Review of Systems Constitutional Constitutional Remarks 10 systems reviewed and negative except for the above Vitals/Results Vital Signs Vital Signs Date Time Temp Pulse Resp B/P (MAP) Pulse Ox O2 Delivery O2 Flow Rate FiO2 12/10/16 11:28 96.8 65 18 125/72 (89) 94 12/10/16 07:45 97.5 76 18 119/71 (87) 95 12/10/16 00:00 97.1 72 16 135/67 (89) 97 12/09/16 21:35 140/69 (92) 12/09/16 19:45 96.4 84 17 165/74 (104) 97 12/09/16 16:00 96.6 69 18 146/70 (95) 96 Physical Exam General General Appearance: Well Developed, Well Nourished, Comfortable Eyes Eye Exam: Pupils Reactive Ears & Nose Ears & Nose Exam: Nasal Mucosa [place] Throat Throat Exam: Oral Mucosa [place] & Moist Neck Neck Exam: Trachea Midline Pulmonary Resp Exam: Breath Sounds Equal, No Distress Cardiology CV Exam: Normal Sinus Rhythm Gastrointestinal/Abdomen GI Exam: Non-Tender, Bowel Sounds Present Musculoskeletal MS Exam: Normal Tone, Good Strength MS Remarks TLSO brace in place Integumentary Skin Exam: Warm, Dry Extremeties Extremities Exam: Pedal Pulses Palpable Neurologic Neuro Exam: Alert, Awake, Oriented, Speech Clear, Moving All Extremities, System Support Administrator Equal, No Focal Deficits Psychiatric Psych Exam: Appropriate Responses (1) Assessment/Plan Assessment/Plan Assessment Severe back pain L1 compression fracture Inability to walk on admission, improved Hypertensive urgency and admission, improved Dizziness on admission, improved Management Patient declined surgery Continue wearing the TLSO brace Discharge home today Home health physical therapy Pain control Left pressure control Seen by neurosurgery Physical therapy at home Follow with primary physician regarding blood pressure control Discussed with patient and family Discussed with nurse 40 minutes Nel Diaz MD Dec 10, 2016 12:37
[2016-12-10] MEDS ORDERED: ULTR50TA5 PO (12:41)
[2016-12-10] MEDS ORDERED: SENN1TAB PO (12:41)
[2016-12-10] MEDS ORDERED: GETGO ROLLING W1 MI1 (14:41)
--- NOTE | 2016-12-10 14:44 | HHI.FF ---
Face to Face Verification Diagnosis: (1) Compression fracture of L1 lumbar vertebra Physical Therapy Order: Evaluate and Treat Home Health Nursing Order: Medical education Signs/symptoms of disease process I have seen patient Sera Miller on 12/10/16. My clinical findings support the need for the requested home health care services because: Ltd mobility - disease progression Deconditioned w/ increased weakness Limited ability to care for self High risk of falls I certify that my clinical findings support that this patient is homebound because: Unsteady gait/balance Unsafe to leave home unassisted Nel Diaz MD Dec 10, 2016 14:44
== END 2016-12-10 16:45 | disposition home or self-care (01) ==
LOC: PHED 02:19 → UNDOADMIN 06:16 → PHEDA 06:16 → INTOOBSV 06:24 → N06B 10:26
PROVIDERS: ADMIT Specialist; ATTEND Specialist
DX: M48.56XA Collapsed vertebra, not elsewhere classified, lumbar region, initial encounter for fracture (principal); R42 Dizziness and giddiness; W01.0XXA Fall on same level from slipping, tripping and stumbling without subsequent striking against object, initial encounter; E78.00 Pure hypercholesterolemia, unspecified; I10 Essential (primary) hypertension; Y92.481 Parking lot as the place of occurrence of the external cause; I16.0 Hypertensive urgency
CPT/HCPCS: 72128; 72131; 72148; 94150; 96361; 96374; 96375; 96376; 97110; 97116; 97162; 99285; G0378; G8987; G8988; J2060; J2270; J2405; J7030; L0200; L0484